=== PATIENT | female | born 1975 | race Caucasian/White ===

== ENCOUNTER 2017-08-11 19:12 | Emergency (ER) | payer OTHER ==
[~2017-08-11] VITALS: Ht 172.7 cm; Wt 88.5 kg
[~2017-08-11 19:12] MED LIST: ACEBUTCAFT PO; AMOX500 PO; Benadryl 50 mg50 MG PO; CEPH500 PO; CIPR500 PO; CLOB.05TC TP; CRUTCH3 USE; CRUTCH4 USE; CYCL10 PO; ERGO400 PO; ERYT.5TO BOTHEYES; GABA300 PO; HYDACE5 PO; IBUP600 PO; IBUP800 PO; MULVITMINE PO; NAPR500 PO; NAPR550 PO; Naprosyn500 MG PO; Norco 5-325 Ta1 EACH PO; PENVK500 PO; PRED10 PO; PROC10 PO; PROM25 PO; Pepcid20 MG PO; RXHYDACE PO; RXNEOPOLHC AS; RXONDA4ODT MM; SULTRIDS PO; Ultram50 MG PO; VITNEPH PO; Veetids 500500 MG PO; Vistaril25 MG PO
[2017-08-11 19:58] LABS: Source, Urine Clean Catch
[2017-08-11 20:05] LABS: Appearance, Urine Hazy (Clear); Bilirubin, Urine Neg (Neg); Blood, Urine 1+ (Neg); Color, Urine Yellow (P-Yellow); Glucose Qualitative, Urine Neg (Neg); Ketones, Urine Neg (Neg); Leukocyte Esterase, Urine 2+ (Neg); Nitrite, Urine Neg (Neg); Protein, Urine Neg (Neg); Urobilinogen, Urine NORM (Normal)
[2017-08-11 20:11] LABS: BASOPHILS ABSOLUTE AUTO 0.05 K/mm3 (0.00-0.23); BASOPHILS PERCENT AUTO 0 % (0-2); EOSINOPHILS ABSOLUTE AUTO 0.28 K/mm3 (0.00-0.68); EOSINOPHILS PERCENT AUTO 2 % (0-6); Hematocrit 40.5 % (33.0-51.0); Hemoglobin 13.8 g/dL (11.5-16.0); IMMATURE GRAN ABSOLUTE AUTO 0.04 K/mm3 (0.00-0.10); IMMATURE GRAN PERCENT AUTO 0 % (0-1); LYMPHOCYTES ABSOLUTE AUTO 2.48 K/mm3 (0.84-5.20); LYMPHOCYTES PERCENT AUTO 20 % (21-46); MONOCYTES ABSOLUTE AUTO 0.58 K/mm3 (0.16-1.47); MONOCYTES PERCENT AUTO 5 % (4-13); Mean Corpuscular HGB 31.6 pg (26.0-34.0); Mean Corpuscular HGB Conc 34.1 g/dL (31.5-36.5); Mean Corpuscular Volume 93 fL (80-100); Mean Platelet Volume 11.9 fL (9.1-12.4); NEUTROPHILS ABSOLUTE AUTO 8.82 K/mm3 (1.96-9.15); NEUTROPHILS PERCENT AUTO 72 % (41-73); Platelet Count 200 K/mm3 (150-400); RDW Coefficient Variation 13.3 % (11.7-14.2); RDW Standard Deviation 45.7 fL (35.1-46.3); Red Blood Cell Count 4.37 M/mm3 (3.80-5.20); White Blood Cell Count 12.25 K/mm3 (4.00-11.30)
[2017-08-11 20:21] LABS: Red Blood Cells, Urine 0-2 /hpf (0-2); Squamous Epithelial Cells Many /hpf (Few)
[2017-08-11 20:22] LABS: Bacteria Few /hpf
[2017-08-11 20:32] LABS: Alanine Aminotransfer (ALT/SGP 24 U/L (12-78); Albumin, Blood 3.6 g/dL (3.4-5.0); Alk Phos 85 U/L (50-136); Anion Gap 7 mmol/L (6-16); Aspartate Aminotrans (AST/SGOT 19 U/L (12-37); Bilirubin, Total 0.5 mg/dL (0.1-1.0); Blood Urea Nitrogen 11 mg/dL (8-24); Bun/Creatinine Ratio 16.1 (12.0-20.0); CO2, Blood 25 mmol/L (21-32); Chloride, Blood 106 mmol/L (98-108); Creatinine, Blood 0.68 mg/dL (0.40-1.00); Globulin, Blood 3.7 g/dL (2.2-4.0); Glomerular Filtration Rate >60 (60-); Glucose, Blood 106 mg/dL (70-99); Potassium, Blood 3.8 mmol/L (3.5-5.5); Sodium, Blood 138 mmol/L (136-145); Total Protein, Blood 7.3 g/dL (6.4-8.2)
[2017-08-11] MEDS ORDERED: Zofran Odt4 MG SL (22:33)
[2017-08-11] MEDS ORDERED: Norco 5-325 Ta1 EACH PO (22:33)
[2017-08-11] MEDS ORDERED: Percocet 5-3251 EACH PO (22:35)
[2017-12-29] MEDS ORDERED: Percocet 5-3251 EACH PO (15:35)
[2017-12-29] MEDS ORDERED: Zofran4 MG PO (15:35)
== END 2017-08-11 22:46 | disposition home or self-care (01) ==
LOC: ER 19:12
PROVIDERS: Emergency Medicine
DX: N83.202 Unspecified ovarian cyst, left side (principal); D25.9 Leiomyoma of uterus, unspecified; F17.200 Nicotine dependence, unspecified, uncomplicated; Z88.5 Allergy status to narcotic agent; Z88.8 Allergy status to other drugs, medicaments and biological substances; Z98.51 Tubal ligation status; Z90.89 Acquired absence of other organs
CPT/HCPCS: 36415; 74176; 76830; 76856; 80053; 81001; 81025; 83690; 85025; 87086; 96374; 96375; 99284; J1170; J2405

== ENCOUNTER 2017-08-17 09:01 | Emergency (ER) | payer OTHER ==
[~2017-08-17] VITALS: Ht 172.7 cm; Wt 88.5 kg
[~2017-08-17 09:01] MED LIST changes: +Percocet 5-3251 EACH PO; +Zofran Odt4 MG SL
[2017-08-17 09:46] LABS: BASOPHILS ABSOLUTE AUTO 0.03 K/mm3 (0.00-0.23); BASOPHILS PERCENT AUTO 0 % (0-2); EOSINOPHILS ABSOLUTE AUTO 0.17 K/mm3 (0.00-0.68); EOSINOPHILS PERCENT AUTO 2 % (0-6); Hematocrit 40.7 % (33.0-51.0); Hemoglobin 14.3 g/dL (11.5-16.0); IMMATURE GRAN ABSOLUTE AUTO 0.01 K/mm3 (0.00-0.10); IMMATURE GRAN PERCENT AUTO 0 % (0-1); LYMPHOCYTES ABSOLUTE AUTO 2.92 K/mm3 (0.84-5.20); LYMPHOCYTES PERCENT AUTO 36 % (21-46); MONOCYTES ABSOLUTE AUTO 0.43 K/mm3 (0.16-1.47); MONOCYTES PERCENT AUTO 5 % (4-13); Mean Corpuscular HGB 32.1 pg (26.0-34.0); Mean Corpuscular HGB Conc 35.1 g/dL (31.5-36.5); Mean Corpuscular Volume 91 fL (80-100); Mean Platelet Volume 11.7 fL (9.1-12.4); NEUTROPHILS ABSOLUTE AUTO 4.54 K/mm3 (1.96-9.15); NEUTROPHILS PERCENT AUTO 56 % (41-73); Platelet Count 206 K/mm3 (150-400); RDW Coefficient Variation 13.3 % (11.7-14.2); RDW Standard Deviation 44.2 fL (35.1-46.3); Red Blood Cell Count 4.46 M/mm3 (3.80-5.20)
[2017-08-17 10:10] LABS: Alanine Aminotransfer (ALT/SGP 23 U/L (12-78); Albumin, Blood 3.7 g/dL (3.4-5.0); Alk Phos 81 U/L (50-136); Anion Gap 8 mmol/L (6-16); Aspartate Aminotrans (AST/SGOT 15 U/L (12-37); Bilirubin, Total 0.2 mg/dL (0.1-1.0); Blood Urea Nitrogen 14 mg/dL (8-24); Bun/Creatinine Ratio 21.8 (12.0-20.0); CO2, Blood 24 mmol/L (21-32); Calcium, Blood 8.8 mg/dL (8.5-10.1); Chloride, Blood 107 mmol/L (98-108); Creatinine, Blood 0.64 mg/dL (0.40-1.00); Globulin, Blood 3.8 g/dL (2.2-4.0); Glomerular Filtration Rate >60 (60-); Glucose, Blood 101 mg/dL (70-99); Sodium, Blood 139 mmol/L (136-145); Total Protein, Blood 7.5 g/dL (6.4-8.2)
[2017-08-17] MEDS ORDERED: Ultram50 MG PO (10:59)
[2017-12-29] MEDS ORDERED: Zofran4 MG PO (15:35)
[2017-12-29] MEDS ORDERED: Percocet 5-3251 EACH PO (15:35)
== END 2017-08-17 11:20 | disposition home or self-care (01) ==
LOC: ER 09:01
PROVIDERS: Emergency Medicine
DX: R10.30 Lower abdominal pain, unspecified (principal); F17.200 Nicotine dependence, unspecified, uncomplicated; Z98.51 Tubal ligation status; Z90.89 Acquired absence of other organs; Z88.5 Allergy status to narcotic agent; Z88.8 Allergy status to other drugs, medicaments and biological substances
CPT/HCPCS: 36415; 80053; 81000; 81025; 83690; 85025; 96361; 96374; 96375; 99283; J1170; J1885; J2405; J7030

== ENCOUNTER 2017-10-19 06:05 | Day surgery (SDC) | payer OTHER ==
[~2017-10-19] VITALS: Ht 172.7 cm; Wt 95.2 kg
[2017-12-29] MEDS ORDERED: Zofran4 MG PO (15:35)
[2017-12-29] MEDS ORDERED: Percocet 5-3251 EACH PO (15:35)
== END 2017-10-19 09:50 | disposition home or self-care (01) ==
LOC: ORSCSDS 06:05
PROVIDERS: Obstetrics & Gynecology
PROC: 0U5F4ZZ Destruction of Cul-de-sac, Percutaneous Endoscopic Approach (ICD-10-PCS; principal; 2017-10-19 07:30)
DX: R10.2 Pelvic and perineal pain (principal); N80.3 Endometriosis of pelvic peritoneum; K66.0 Peritoneal adhesions (postprocedural) (postinfection); F17.210 Nicotine dependence, cigarettes, uncomplicated; Z79.899 Other long term (current) drug therapy
CPT/HCPCS: J0171; J0690; J1100; J1885; J2250; J2270; J2405; J2710; J3010; J7120

== ENCOUNTER 2017-10-27 09:39 | Emergency (ER) | payer OTHER ==
[~2017-10-27] VITALS: Ht 172.7 cm; Wt 90.7 kg
[2017-10-27] MEDS ORDERED: Percocet 5-3251 EACH PO (09:48)
[2017-10-27 10:45] LABS: BASOPHILS ABSOLUTE AUTO 0.06 K/mm3 (0.00-0.23); BASOPHILS PERCENT AUTO 1 % (0-2); EOSINOPHILS ABSOLUTE AUTO 0.29 K/mm3 (0.00-0.68); EOSINOPHILS PERCENT AUTO 3 % (0-6); Hematocrit 39.7 % (33.0-51.0); Hemoglobin 13.8 g/dL (11.5-16.0); IMMATURE GRAN ABSOLUTE AUTO 0.03 K/mm3 (0.00-0.10); IMMATURE GRAN PERCENT AUTO 0 % (0-1); LYMPHOCYTES ABSOLUTE AUTO 2.75 K/mm3 (0.84-5.20); LYMPHOCYTES PERCENT AUTO 26 % (21-46); MONOCYTES ABSOLUTE AUTO 0.69 K/mm3 (0.16-1.47); MONOCYTES PERCENT AUTO 7 % (4-13); Mean Corpuscular HGB 31.2 pg (26.0-34.0); Mean Corpuscular HGB Conc 34.8 g/dL (31.5-36.5); Mean Corpuscular Volume 90 fL (80-100); Mean Platelet Volume 11.2 fL (9.1-12.4); NEUTROPHILS ABSOLUTE AUTO 6.87 K/mm3 (1.96-9.15); NEUTROPHILS PERCENT AUTO 64 % (41-73); Platelet Count 207 K/mm3 (150-400); RDW Coefficient Variation 12.5 % (11.7-14.2); RDW Standard Deviation 41.6 fL (35.1-46.3); Red Blood Cell Count 4.43 M/mm3 (3.80-5.20); White Blood Cell Count 10.69 K/mm3 (4.00-11.30)
[2017-10-27 11:04] LABS: Alanine Aminotransfer (ALT/SGP 36 U/L (12-78); Albumin, Blood 3.3 g/dL (3.4-5.0); Albumin/Globulin Ratio 0.8 (0.8-1.8); Alk Phos 89 U/L (50-136); Anion Gap 5 mmol/L (6-16); Aspartate Aminotrans (AST/SGOT 20 U/L (12-37); Bilirubin, Total 0.2 mg/dL (0.1-1.0); Blood Urea Nitrogen 10 mg/dL (8-24); Bun/Creatinine Ratio 15.7 (12.0-20.0); CO2, Blood 27 mmol/L (21-32); Calcium, Blood 8.7 mg/dL (8.5-10.1); Chloride, Blood 105 mmol/L (98-108); Creatinine, Blood 0.64 mg/dL (0.40-1.00); Globulin, Blood 3.9 g/dL (2.2-4.0); Glomerular Filtration Rate >60 (60-); Glucose, Blood 87 mg/dL (70-99); Potassium, Blood 3.8 mmol/L (3.5-5.5); Sodium, Blood 137 mmol/L (136-145); Total Protein, Blood 7.2 g/dL (6.4-8.2)
[2017-12-29] MEDS ORDERED: Zofran4 MG PO (15:35)
[2017-12-29] MEDS ORDERED: Percocet 5-3251 EACH PO (15:35)
== END 2017-10-27 12:51 | disposition home or self-care (01) ==
LOC: ER 09:39
PROVIDERS: Emergency Medicine
DX: G89.18 Other acute postprocedural pain (principal); R10.30 Lower abdominal pain, unspecified; J44.9 Chronic obstructive pulmonary disease, unspecified; F17.200 Nicotine dependence, unspecified, uncomplicated
CPT/HCPCS: 36415; 74176; 80053; 81000; 81025; 85025; 96374; 96375; 99284; J0780; J1170; J1200; J1885

== ENCOUNTER 2017-12-29 | Emergency (ER) | END 2017-12-29 15:45 | disposition home or self-care (01) ==

== ENCOUNTER → 2018-02-18 | Outpatient (CLI) | payer OTHER ==
[~2018-02-18] MED LIST changes: +Zofran4 MG PO
== END ==
LOC: LAB 16:30 → LAB SHORT 16:30
DX: L08.9 Local infection of the skin and subcutaneous tissue, unspecified (principal)
CPT/HCPCS: 87070; 87075; 87147; 87205

== ENCOUNTER 2018-03-05 05:51 | Day surgery (SDC) | payer OTHER ==
[2018-03-04 10:03] LABS: Hematocrit 40.7 % (33.0-51.0); Mean Corpuscular HGB Conc 34.4 g/dL (31.5-36.5); Mean Corpuscular Volume 90 fL (80-100); Mean Platelet Volume 12.5 fL (9.1-12.4); Platelet Count 189 K/mm3 (150-400); RDW Coefficient Variation 12.7 % (11.7-14.2); RDW Standard Deviation 41.5 fL (35.1-46.3); Red Blood Cell Count 4.51 M/mm3 (3.80-5.20); White Blood Cell Count 7.49 K/mm3 (4.00-11.30)
[~2018-03-05] VITALS: Ht 170.2 cm; Wt 98.4 kg
[2018-03-06 04:21] LABS: BASOPHILS ABSOLUTE AUTO 0.03 K/mm3 (0.00-0.23); BASOPHILS PERCENT AUTO 0 % (0-2); EOSINOPHILS ABSOLUTE AUTO 0.01 K/mm3 (0.00-0.68); EOSINOPHILS PERCENT AUTO 0 % (0-6); Hematocrit 34.3 % (33.0-51.0); Hemoglobin 11.9 g/dL (11.5-16.0); IMMATURE GRAN ABSOLUTE AUTO 0.05 K/mm3 (0.00-0.10); IMMATURE GRAN PERCENT AUTO 0 % (0-1); LYMPHOCYTES ABSOLUTE AUTO 2.27 K/mm3 (0.84-5.20); LYMPHOCYTES PERCENT AUTO 16 % (21-46); MONOCYTES ABSOLUTE AUTO 0.72 K/mm3 (0.16-1.47); MONOCYTES PERCENT AUTO 5 % (4-13); Mean Corpuscular HGB 31.7 pg (26.0-34.0); Mean Corpuscular HGB Conc 34.7 g/dL (31.5-36.5); Mean Corpuscular Volume 92 fL (80-100); Mean Platelet Volume 11.7 fL (9.1-12.4); NEUTROPHILS PERCENT AUTO 79 % (41-73); Platelet Count 174 K/mm3 (150-400); RDW Coefficient Variation 12.7 % (11.7-14.2); RDW Standard Deviation 42.4 fL (35.1-46.3); Red Blood Cell Count 3.75 M/mm3 (3.80-5.20); White Blood Cell Count 14.38 K/mm3 (4.00-11.30)
[2018-03-06] MEDS ORDERED: Percocet 5-3251 EACH PO (14:28)
[2018-03-06] MEDS ORDERED: IBUP800 PO (14:28)
[2018-03-06] MEDS ORDERED: PROM25 PO (14:33)
[2018-03-06] MEDS ORDERED: ESTR2 PO (14:34)
[2018-03-06] MEDS ORDERED: BENADRYL25 MG PO (14:46)
[2018-03-06] MEDS ORDERED: Milk Of Ma400 MG/5 M PO (14:47)
[2018-03-06] MEDS ORDERED: COLACE 2-IN-11 EACH PO (14:47)
[2018-03-06] MEDS ORDERED: SIME80CH PO (14:48)
== END 2018-03-06 15:07 | disposition home or self-care (01) ==
LOC: ORSCMMR 05:51 → ORSCSDS 07:30 → ORD 07:30 → ORSCMMR 07:30 → SURS 11:22 → ORSCMMR 03-06 15:07
PROVIDERS: Obstetrics & Gynecology
PROC: 0UT9FZZ Resection of Uterus, Via Natural or Artificial Opening With Percutaneous Endoscopic Assistance (ICD-10-PCS; principal; 2018-03-05 07:30)
PROC: 0UT7FZZ Resection of Bilateral Fallopian Tubes, Via Natural or Artificial Opening With Percutaneous Endoscopic Assistance (ICD-10-PCS; principal; 2018-03-05 07:30)
PROC: 0UT2FZZ Resection of Bilateral Ovaries, Via Natural or Artificial Opening With Percutaneous Endoscopic Assistance (ICD-10-PCS; principal; 2018-03-05 07:30)
DX: N80.3 Endometriosis of pelvic peritoneum (principal); N92.5 Other specified irregular menstruation; N94.6 Dysmenorrhea, unspecified; R10.2 Pelvic and perineal pain; D25.9 Leiomyoma of uterus, unspecified; N83.8 Other noninflammatory disorders of ovary, fallopian tube and broad ligament; Z87.891 Personal history of nicotine dependence; E66.9 Obesity, unspecified; Z68.34 Body mass index [BMI] 34.0-34.9, adult
CPT/HCPCS: 36415; 84703; 85025; 85027; 86850; 86900; 86901; 88307; J0171; J0690; J1100; J1170; J1885; J2250; J2405; J2710; J3010; J7120; Q0163

== ENCOUNTER 2020-09-03 09:03 | Emergency (ER) | payer OTHER ==
[~2020-09-03] VITALS: Ht 172.7 cm; Wt 111.1 kg
[~2020-09-03 09:03] MED LIST changes: +BELPTAB PO; +BENADRYL25 MG PO; +COLACE 2-IN-11 EACH PO; +Cipro500 MG PO; +ESTR2 PO; +Flagyl500 MG PO; +HYDR1TAB94 PO; +Milk Of Ma400 MG/5 M PO; +ONDA4ODT MM; +Omeprazole20 M1 PO; +SIME80CH PO
[2020-09-03 12:18] LABS: Source, Urine Clean Catch
[2020-09-03 12:21] LABS: Appearance, Urine Clear (Clear); Bilirubin, Urine Neg (Neg); Blood, Urine 1+ (Neg); Color, Urine Yellow (P-Yellow); Glucose Qualitative, Urine Neg (Neg); Ketones, Urine Neg (Neg); Leukocyte Esterase, Urine Neg (Neg); Nitrite, Urine Neg (Neg); Protein, Urine Neg (Neg); Urobilinogen, Urine NORM (Normal)
[2020-09-03 12:37] LABS: Bacteria Rare /hpf; Red Blood Cells, Urine 0-2 /hpf (0-2); Squamous Epithelial Cells Many /hpf (Few); White Blood Cells, Urine 0-2 /hpf (0-5)
[2021-01-04] MEDS ORDERED: ALORA TOP (09:56)
[2021-01-04] MEDS ORDERED: NAPR500 PO (09:56)
[2021-01-04] MEDS ORDERED: ESTR2 PO (09:56)
== END 2020-09-03 14:40 | disposition home or self-care (01) ==
LOC: ER 09:03
PROVIDERS: Emergency Medicine
DX: R10.32 Left lower quadrant pain (principal); R19.7 Diarrhea, unspecified; F17.210 Nicotine dependence, cigarettes, uncomplicated; Z88.5 Allergy status to narcotic agent; Z88.4 Allergy status to anesthetic agent
CPT/HCPCS: 74177; 81001; 83690; 96374-59; 99285-25; J1885; Q9967

== ENCOUNTER 2020-10-30 10:47 | Emergency (ER) | payer OTHER ==
[~2020-10-30] VITALS: Ht 172.7 cm; Wt 111.1 kg
[2020-10-30] MEDS ORDERED: ONDA4ODT MM (11:48)
[2020-10-30] MEDS ORDERED: Norco 5-325 Ta1 EACH PO (11:48)
[2021-01-04] MEDS ORDERED: ESTR2 PO (09:56)
[2021-01-04] MEDS ORDERED: NAPR500 PO (09:56)
[2021-01-04] MEDS ORDERED: ALORA TOP (09:56)
== END 2020-10-30 12:03 | disposition home or self-care (01) ==
LOC: ER 10:47
DX: S83.92XA Sprain of unspecified site of left knee, initial encounter (principal); M17.12 Unilateral primary osteoarthritis, left knee; Z88.5 Allergy status to narcotic agent; Z88.4 Allergy status to anesthetic agent; Z79.899 Other long term (current) drug therapy; W19.XXXA Unspecified fall, initial encounter; F17.210 Nicotine dependence, cigarettes, uncomplicated
CPT/HCPCS: 73562-LT; 99283-25

== ENCOUNTER 2021-01-11 10:24 | Day surgery (SDC) | payer OTHER ==
[~2021-01-11] VITALS: Ht 172.7 cm; Wt 108.5 kg
[~2021-01-11 10:24] MED LIST changes: +ALORA TOP
--- NOTE | 2021-01-11 11:14 | NUR ---
01/11/21 1114 Kimberly Bundy CHARTING DONE BY BILL GORDON RN
[2021-01-11] MEDS ORDERED: ACET500 PO (11:25)
--- NOTE | 2021-01-11 14:48 | NUR ---
01/11/21 1448 Tana Woodard FENTANYL GIVEN IV PER DR LAGUNA, DR LAGUNA AWARE OF ALLERGY TO FENTANYL OF ITCHING. NO REACTION NOTED.
== END 2021-01-11 14:33 | disposition home or self-care (01) ==
LOC: ORSCSDS 10:24
PROVIDERS: Orthopaedic Surgery
PROC: 0SBD4ZZ Excision of Left Knee Joint, Percutaneous Endoscopic Approach (ICD-10-PCS; principal; 2021-01-11 12:00)
DX: M17.12 Unilateral primary osteoarthritis, left knee (principal); S83.242D Other tear of medial meniscus, current injury, left knee, subsequent encounter; E11.9 Type 2 diabetes mellitus without complications; Z87.891 Personal history of nicotine dependence; E66.01 Morbid (severe) obesity due to excess calories; Z68.36 Body mass index [BMI] 36.0-36.9, adult; Z79.899 Other long term (current) drug therapy
CPT/HCPCS: A9270; J0690; J1100; J1885; J2250; J2405; J2704; J3010; J7120

== ENCOUNTER 2021-01-14 02:51 | Emergency (ER) | payer OTHER ==
[~2021-01-14] VITALS: Ht 172.7 cm; Wt 108.9 kg
[~2021-01-14 02:51] MED LIST changes: +ACET500 PO
== END 2021-01-14 04:11 | disposition home or self-care (01) ==
LOC: ER 02:51
DX: K59.00 Constipation, unspecified (principal); R10.9 Unspecified abdominal pain; Z87.891 Personal history of nicotine dependence; Z88.5 Allergy status to narcotic agent
CPT/HCPCS: 74022; 99283-25; A9270

== ENCOUNTER 2022-04-15 16:45 | Emergency (ER) | payer OTHER ==
[~2022-04-15] VITALS: Ht 172.7 cm; Wt 99.8 kg
[2022-04-15] MEDS ORDERED: IBU800 MG PO (19:41)
[2022-04-15] MEDS ORDERED: CYCL10 PO (19:41)
[2022-04-15] MEDS ORDERED: HYDR1TAB94 PO (19:41)
== END 2022-04-15 20:04 ==
LOC: ER 16:45
DX: S16.1XXA Strain of muscle, fascia and tendon at neck level, initial encounter (principal); V89.2XXA Person injured in unspecified motor-vehicle accident, traffic, initial encounter; Z79.899 Other long term (current) drug therapy; Z87.891 Personal history of nicotine dependence
CPT/HCPCS: 72070; 72125; A9270

== ENCOUNTER 2024-07-17 18:47 | Emergency (ER) | payer OTHER ==
[~2024-07-17] VITALS: Ht 172.7 cm; Wt 88.5 kg
[~2024-07-17 18:47] MED LIST changes: +IBU800 MG PO
[2024-07-17 19:33] LABS: BASOPHILS ABSOLUTE AUTO 0.04 K/mm3 (0.00-0.23); BASOPHILS PERCENT AUTO 1 % (0-2); EOSINOPHILS ABSOLUTE AUTO 0.12 K/mm3 (0.00-0.68); EOSINOPHILS PERCENT AUTO 1 % (0-6); Hematocrit 38.3 % (33.0-51.0); Hemoglobin 13.5 g/dL (11.5-16.0); IMMATURE GRAN ABSOLUTE AUTO 0.01 K/mm3 (0.00-0.10); IMMATURE GRAN PERCENT AUTO 0 % (0-1); LYMPHOCYTES ABSOLUTE AUTO 4.07 K/mm3 (0.84-5.20); LYMPHOCYTES PERCENT AUTO 49 % (21-46); MONOCYTES PERCENT AUTO 6 % (4-13); Mean Corpuscular HGB 32.5 pg (26.0-34.0); Mean Corpuscular HGB Conc 35.2 g/dL (31.5-36.5); Mean Corpuscular Volume 92 fL (80-100); Mean Platelet Volume 11.9 fL (9.1-12.4); NEUTROPHILS ABSOLUTE AUTO 3.66 K/mm3 (1.96-9.15); NEUTROPHILS PERCENT AUTO 44 % (41-73); Platelet Count 178 K/mm3 (150-400); RDW Coefficient Variation 12.4 % (11.7-14.2); RDW Standard Deviation 42.4 fL (35.1-46.3); Red Blood Cell Count 4.15 M/mm3 (3.80-5.20)
[2024-07-17] MEDS ORDERED: NS 1,000 ML IV SCH (19:35)
[2024-07-17 19:38] LABS: Albumin, Blood 3.3 g/dL (3.4-5.0); Albumin/Globulin Ratio 1.1 (0.8-1.8); Bilirubin, Total 0.2 mg/dL (0.1-1.0); Bun/Creatinine Ratio 19.8 (12.0-20.0); Calcium, Blood 8.9 mg/dL (8.5-10.1); Creatinine, Blood 0.81 mg/dL (0.40-1.00); Globulin, Blood 3.1 g/dL (2.2-4.0); Total Protein, Blood 6.4 g/dL (6.4-8.2)
[2024-07-17 20:03] LABS: Influenza A, PCR NEGATIVE (NEGATIVE); Influenza B, PCR NEGATIVE (NEGATIVE); Resp Syncytial Virus, PCR NEGATIVE (NEGATIVE); SARS-Cov-2 (COVID-19) PCR, MMC NEGATIVE (NEGATIVE)
[2024-07-17] MEDS ORDERED: Loperamide HCl 2 MG Cap PO ONE (21:25)
[2024-07-17 21:37] VITALS: BP 121/62
== END 2024-07-17 21:38 | disposition home or self-care (01) ==
LOC: ER 18:47
PROVIDERS: Student in an Organized Health Care Education/Training Program
DX: R19.7 Diarrhea, unspecified (principal); Z79.899 Other long term (current) drug therapy; F17.210 Nicotine dependence, cigarettes, uncomplicated
CPT/HCPCS: 0241U; 71045; 80053; 83690; 84484; 85025; 93005; 93010; 96360; 99284-25; A9270; J7030

== ENCOUNTER → 2024-07-19 | Outpatient (CLI) | payer OTHER ==
[2024-07-19 13:56] LABS: Campylobacter Sp Not Detected (NOT DETECT); Plesiomonas Shigelloides Not Detected (NOT DETECT)
[2024-07-19 13:57] LABS: Adenovirus F 40/41 Detected (NOT DETECT); Astrovirus Not Detected (NOT DETECT); Cryptosporidium Not Detected (NOT DETECT); Cyclospora Cayetanensis Not Detected (NOT DETECT); E. Coli O157 Not Detected (NOT DETECT); Entamoeba Histolytica Not Detected (NOT DETECT); Enteroaggregative E. coli-EAEC Not Detected (NOT DETECT); Enteropathogenic E. coli-EPEC Not Detected (NOT DETECT); Enterotoxigenic E. coli-ETEC Not Detected (NOT DETECT); Giardia Lamblia Not Detected (NOT DETECT); Norovirus GI/GII Not Detected (NOT DETECT); Rotavirus A Not Detected (NOT DETECT); Salmonella Sp Not Detected (NOT DETECT); Sapovirus Not Detected (NOT DETECT); Shiga Toxin-prod E. coli-STEC Not Detected (NOT DETECT); Shigella/Enteroin E. coli-EIEC Not Detected (NOT DETECT); Vibrio Cholerae Not Detected (NOT DETECT); Vibrio Sp Not Detected (NOT DETECT); Yersinia Enterocolitica Not Detected (NOT DETECT)
[2024-07-21 17:21] LABS: PANCREATIC ELASTASE,FECAL 153 ug/g (>=100)
[2024-07-21 17:52] LABS: CALPROTECTIN,FECAL 787 ug/g (<=49)
== END | disposition home or self-care (01) ==
LOC: LAB SHORT 09:07 → LAB 09:07
PROVIDERS: Family Medicine
DX: R19.7 Diarrhea, unspecified (principal)
CPT/HCPCS: 82653; 83993; 87507

== ENCOUNTER → 2024-10-05 | Outpatient (CLI) | payer OTHER ==
[2024-10-05 16:03] LABS: BASOPHILS ABSOLUTE AUTO 0.03 K/mm3 (0.00-0.23); BASOPHILS PERCENT AUTO 0 % (0-2); EOSINOPHILS ABSOLUTE AUTO 0.06 K/mm3 (0.00-0.68); EOSINOPHILS PERCENT AUTO 1 % (0-6); Hematocrit 38.3 % (33.0-51.0); Hemoglobin 13.4 g/dL (11.5-16.0); IMMATURE GRAN ABSOLUTE AUTO 0.02 K/mm3 (0.00-0.10); IMMATURE GRAN PERCENT AUTO 0 % (0-1); LYMPHOCYTES PERCENT AUTO 35 % (21-46); MONOCYTES ABSOLUTE AUTO 0.55 K/mm3 (0.16-1.47); MONOCYTES PERCENT AUTO 6 % (4-13); Mean Corpuscular HGB 32.2 pg (26.0-34.0); Mean Corpuscular Volume 92 fL (80-100); Mean Platelet Volume 11.6 fL (9.1-12.4); NEUTROPHILS ABSOLUTE AUTO 5.41 K/mm3 (1.96-9.15); NEUTROPHILS PERCENT AUTO 58 % (41-73); Platelet Count 227 K/mm3 (150-400); RDW Coefficient Variation 12.7 % (11.7-14.2); RDW Standard Deviation 42.6 fL (35.1-46.3); Red Blood Cell Count 4.16 M/mm3 (3.80-5.20); White Blood Cell Count 9.37 K/mm3 (4.00-11.30)
== END ==
LOC: LAB SHORT 15:59 → LAB 15:59
PROVIDERS: Physician Assistant
DX: K92.1 Melena (principal)
CPT/HCPCS: 85025

== ENCOUNTER → 2024-10-19 | Outpatient (CLI) | payer OTHER ==
[~2024-10-19] MED LIST changes: +DULO30 PO; +Phentermine HCl30 MG PO; +TIZA4 PO; +TRAZ100 PO
[2024-10-19 12:48] LABS: Adenovirus F 40/41 Not Detected (NOT DETECT); Astrovirus Not Detected (NOT DETECT); Campylobacter Sp Not Detected (NOT DETECT); Cryptosporidium Not Detected (NOT DETECT); Cyclospora Cayetanensis Not Detected (NOT DETECT); E. Coli O157 Not Detected (NOT DETECT); Entamoeba Histolytica Not Detected (NOT DETECT); Enteroaggregative E. coli-EAEC Not Detected (NOT DETECT); Enteropathogenic E. coli-EPEC Not Detected (NOT DETECT); Enterotoxigenic E. coli-ETEC Not Detected (NOT DETECT); Giardia Lamblia Not Detected (NOT DETECT); Norovirus GI/GII Not Detected (NOT DETECT); Plesiomonas Shigelloides Not Detected (NOT DETECT); Rotavirus A Not Detected (NOT DETECT); Salmonella Sp Not Detected (NOT DETECT); Sapovirus Not Detected (NOT DETECT); Shiga Toxin-prod E. coli-STEC Not Detected (NOT DETECT); Shigella/Enteroin E. coli-EIEC Not Detected (NOT DETECT); Vibrio Cholerae Not Detected (NOT DETECT); Vibrio Sp Not Detected (NOT DETECT); Yersinia Enterocolitica Not Detected (NOT DETECT)
[2024-10-21 13:38] LABS: CALPROTECTIN,FECAL 84 ug/g (<=49)
[2024-10-21 19:09] LABS: PANCREATIC ELASTASE,FECAL 541 ug/g (>=100)
== END | disposition home or self-care (01) ==
LOC: LAB SHORT 09:45 → LAB 09:45 → LAB FUT 10-18 09:00
PROVIDERS: Nurse Practitioner
DX: R19.7 Diarrhea, unspecified (principal)
CPT/HCPCS: 87507

== ENCOUNTER 2024-11-07 07:24 | Day surgery (SDC) | payer OTHER ==
[2024-11-07] VITALS (10 sets, daily range): BP systolic 105–120; BP diastolic 59–98
[~2024-11-07] VITALS: Ht 170.2 cm; Wt 90.0 kg
[~2024-11-07 07:24] MED LIST changes: +Acetaminophen 500 MG Tab PO SCH; +CeFAZolin Sodium 2,000 MG VIAL ONE; +CeFAZolin Sodium 2,000 MG in NS 100 ML IV SCH; +Chlorhexidine Mouth Care 15 ML UDC MT SCH; +Lactated Ringer's 1,000 ML IV SCH; +Magnesium Sulfate 500 MG / ML 2ML Vial ONE; +Ropivacaine 0.5% HCl/Pf 123.125 MG,EPINEPHrine HCL 0.25 MG,Ketorolac Tromethamine 15 MG... INFIL SCH; +Tranexamic Acid 100 ML IV SCH; +propofoL 50 ML IV ONE
[2024-11-07] MEDS ORDERED: OxyCODONE HCL 10 MG TABCR PO SCH (07:40)
[2024-11-07] MEDS ORDERED: Ondansetron HCl 2 MG / ML 2ML Vial IV ONE (07:50)
[2024-11-07] MEDS ORDERED: Midazolam HCl 1MG / ML 2ML Vial ONE (07:55)
[2024-11-07] MEDS ORDERED: HYDROmorphone HCl/Pf 1MG SYR ONE (08:01)
--- NOTE | 2024-11-07 08:15 | NUR ---
Ambulatory in Day Surgery WITH STEADY GAIT. History, Chart, Medications and Allergies reviewed before start of procedure. Pre-Op teaching done. Pt verbalizes understanding. DELFINO ADAMSON AT BEDSIDE. PT REPORTS FEELING NAUSEATED WHEN ARRIVING TO PRE OP. DR VILLALOBOS MADE AWARE. 4MG IV ZOFRAN GIVEN PER DR VILLALOBOS. SEE EMAR. PT REPORTS PAIN OF 7/10 IN LEFT KNEE WHICH IS "NORMAL" FOR THAT KNEE. ALL BELONGINGS INCLUDING DENTURES PLACED UNDER GURN IN PT'S PERSONAL [facility] PROVIDED BAG. CALL LIGHT IN REACH. BED IN LOWEST LOCKED POSITION.
--- NOTE | 2024-11-07 09:16 | NUR ---
PT UPDATED ON DELAY IN PROCEDURE START TIME DUE TO PREVIOUS CASE RUNNING LONG. WARM BLANKET PROVIDED. CALL LIGHT IN REACH. FIANCE AT BEDSIDE.
[2024-11-07] MEDS ORDERED: propofoL 20 ML IV ONE (10:37)
[2024-11-07] MEDS ORDERED: TraZODone HCl 100 MG Tab PO PRN (11:35)
[2024-11-07] MEDS ORDERED: HYDROmorphone HCl/Pf 1MG SYR IV PRN (11:40)
[2024-11-07] MEDS ORDERED: DiphenhydrAMINE HCL 25 MG Cap PO PRN (11:45)
[2024-11-07] MEDS ORDERED: Ondansetron HCl 2 MG / ML 2ML Vial IV PRN (11:45)
[2024-11-07] MEDS ORDERED: Bisacodyl 10 MG Supp PR PRN (11:45)
[2024-11-07] MEDS ORDERED: Promethazine HCl 25 MG Tab PO PRN (11:45)
[2024-11-07] MEDS ORDERED: Magnesium Hydroxide Conc 10 ML UDC PO PRN (11:45)
[2024-11-07] MEDS ORDERED: Metoclopramide HCl 5MG / ML 2ML Vial IV PRN (11:45)
--- NOTE | 2024-11-07 12:05 | NUR ---
POST OP ARRIVAL TO SURGICAL UNIT VIA HOSPITAL BED, ALERT, ORIENTED, & APPROP. LUNGS CLEAR. HRR. L KNEE w/ AQUACEL x 2. NO DRNG NOTED. PPP. CRYOTHERAPY IN PLACE. UNABLE TO WIGGLE TOES R/T SPINAL. DENIES PAIN. DENIES N/V; SNACKS GIVEN.
[2024-11-07] MEDS ORDERED: Lactated Ringer's 1,000 ML IV SCH (12:10)
[2024-11-07] MEDS ORDERED: HYDROcodone 5-APAP 325 TAB PO PRN (14:10)
[2024-11-07] MEDS ORDERED: CeFAZolin Sodium 2,000 MG in NS 100 ML IV SCH (16:00)
[2024-11-07] MEDS ORDERED: Acetaminophen 500 MG Tab PO SCH (16:00)
[2024-11-07] MEDS ORDERED: ACET500 PO (16:44)
[2024-11-07] MEDS ORDERED: ASPI81CH PO (16:44)
[2024-11-07] MEDS ORDERED: DOCU100 PO (16:44)
--- NOTE | 2024-11-07 17:00 | NUR ---
DISCHARGE PT HAS WORKED w/ THIS RN ON STAIRS. STABLE GAIT. PT FEELS CONFIDENT. PAIN WELL CONTROLLED. EATING, DRINKING, & VOIDING WELL. [facility] [employer] SENT w/ PT. ESCORTED OUT VIA W/C.
[2024-11-07] MEDS ORDERED: Ketorolac Tromethamine 15mg Vial IV SCH (18:00)
[2024-11-07] MEDS ORDERED: Gabapentin 300 MG Cap PO SCH (21:00)
[2024-11-07] MEDS ORDERED: Docusate Sodium 100 MG Cap PO SCH (21:00)
[2024-11-08] MEDS ORDERED: Estradiol 1 MG Tab PO SCH (09:00)
[2024-11-08] MEDS ORDERED: DULoxetine HCL 60 MG Capsule DR PO SCH (09:00)
[2024-11-08] MEDS ORDERED: Aspirin 81 MG Chew PO SCH (09:00)
== END 2024-11-07 17:10 | disposition home or self-care (01) ==
LOC: ORSCMMR 07:24 → ORD 08:30 → ORSCMMR 08:30 → SURS 12:00 → ORSCMMR 17:10
PROVIDERS: Orthopaedic Surgery
PROC: 0SRD0JA Replacement of Left Knee Joint with Synthetic Substitute, Uncemented, Open Approach (ICD-10-PCS; principal; 2024-11-07 08:30)
DX: M17.12 Unilateral primary osteoarthritis, left knee (principal); Z87.891 Personal history of nicotine dependence; Z79.899 Other long term (current) drug therapy
CPT/HCPCS: 27447; 0055T; 73560-LT; A9270; C1713; C1776; J0171; J0690; J0735; J1171; J1885; J2250; J2405; J2704; J2795; J3475; J7120